=== PATIENT | female | born 1940 | race African-American/Black ===

== ENCOUNTER 2022-09-18 06:41 | Inpatient (IN) | payer MEDICARE ==
[~2022-09-18] VITALS: Ht 165.1 cm; Wt 90.7 kg
[2022-09-18 07:57] LABS: BASOPHILS % 0.5 % (0.0-2.0); HEMATOCRIT. 35.9 % (36.0-48.0); HEMOGLOBIN. 11.8 g/dL (12.0-16.0); LYMPHOCYTES % 23.4 % (20.0-50.0); MEAN CORPUSCULAR HEMOGLOBIN 27.4 pg (28.0-32.0); MEAN CORPUSCULAR VOLUME 83.4 fL (81.0-99.0); MEAN PLATELET VOLUME 7.9 fl (7.4-10.4); MONOCYTES % 6.6 % (2.0-8.0); NEUTROPHILS % 67.5 % (40.0-76.0); PLATELET 216 x1000/uL (130-400); RED CELL DISTRIBUTION WIDTH 15.1 % (11.6-14.6)
[2022-09-18 08:05] LABS: CHLORIDE 105 mEq/L (98-107)
[2022-09-18 08:06] LABS: PROTHROMBIN TIME 10.4 sec (9.6-11.0)
[2022-09-18] MEDS ORDERED: HYDRALAZINE 20MG/ML VIAL IV ONE (10:30)
[2022-09-18] MEDS ORDERED: DOCUSATE SODIUM 100MG CAPSULE PO PRN (12:00)
[2022-09-18] MEDS ORDERED: GUAIFENESIN 200MG/10ML SUGAR FREE UDC PO PRN (12:00)
[2022-09-18] MEDS ORDERED: ONDANSETRON HCL 4MG/2ML INJ IV PRN (12:00)
[2022-09-18] MEDS ORDERED: ACETAMINOPHEN 325MG TABLET PO PRN ×2 (12:00)
[2022-09-18] MEDS ORDERED: CLONIDINE 0.1MG TABLET PO PRN (12:00)
[2022-09-18] MEDS ORDERED: MAGNESIUM/ALUMINUM HYDROXIDE/SIMETHICONE 30ML UDC PO PRN (12:00)
[2022-09-18] MEDS ORDERED: NA PHOS,M-B/NA PHOS,DI-BA ENEMA 118ML PR PRN (12:00)
[2022-09-18] MEDS ORDERED: DEXTROSE 50% WATER 50ML SYRINGE IV PRN (12:00)
[2022-09-18] MEDS ORDERED: HYDRALAZINE 20MG/ML VIAL IV PRN (12:15)
[2022-09-18] MEDS ORDERED: GABAPENTIN 100MG CAPSULE PO SCH (13:00)
[2022-09-18] MEDS: INSULIN LISPRO 100 UNITS/ML SUBCUT SCH ×3 (13:20→20:45)
[2022-09-18] MEDS ORDERED: ACETAMINOPHEN 325MG TABLET PO SCH (13:30)
[2022-09-18] MEDS: AMLODIPINE 5MG TABLET PO SCH (13:45)
[2022-09-18] MEDS: BLOOD SUGAR DIAGNOSTIC STRIP TEST SCH ×3 (13:51→20:40)
[2022-09-18] MEDS ORDERED: HYDRALAZINE 20MG/ML VIAL IV SCH (14:00)
[2022-09-18 14:18] LABS: CLARITY URINE CLEAR (CLEAR); COLOR URINE YELLOW (YELLOW); KETONES URINE NEGATIVE (NEGATIVE); LEUKOCYTE ESTERASE URINE NEGATIVE (NEGATIVE); NITRITE URINE NEGATIVE (NEGATIVE); OCCULT BLOOD URINE NEGATIVE (NEGATIVE); PH URINE 5.5 (4.5-8.0); PROTEIN URINE NEGATIVE (NEGATIVE); UROBILINOGEN URINE 0.2 E.U./dL (0.2-1.0)
[2022-09-18 14:40] LABS: D-DIMER 0.46 mg/L FEU (<0.50); PROTHROMBIN TIME 10.3 sec (9.6-11.0)
[2022-09-18 15:21] LABS: T4 FREE 0.87 ng/dL (0.76-1.46)
[2022-09-18 15:30] VITALS: BP 142/51
[2022-09-18 15:53] VITALS: BP 142/51
[2022-09-18] MEDS: LOSARTAN POTASSIUM 100 MG TABLET PO SCH (16:58)
[2022-09-18] MEDS: RIVAROXABAN 15 MG TABLET PO SCH (16:58)
[2022-09-18 17:05] LABS: FOLIC ACID (FOLATE) SERUM >20 ng/mL ng/mL (>5.38); VITAMIN B12 SERUM 866 pg/mL (211-911)
[2022-09-18] MEDS: METOPROLOL SUCCINATE 50MG ER TABLET PO SCH (17:47)
[2022-09-18] MEDS ORDERED: DAPA10TA PO (18:56)
[2022-09-18 20:00] VITALS: BP 139/59
[2022-09-18] MEDS ORDERED: MEMA5TAB42 PO (20:30)
[2022-09-18] MEDS ORDERED: METO-396 PO (20:30)
[2022-09-18] MEDS ORDERED: AMLO10TA80 PO (20:30)
[2022-09-18] MEDS ORDERED: CYAN-50 PO (20:30)
[2022-09-18] MEDS ORDERED: XAR15 PO (20:30)
[2022-09-18] MEDS ORDERED: GABA-529 PO (20:30)
[2022-09-18] MEDS ORDERED: SIMV-43 PO (20:30)
[2022-09-18] MEDS ORDERED: DEXL60CA6 PO (20:30)
[2022-09-18] MEDS ORDERED: FOLI-43 PO (20:30)
[2022-09-18] MEDS ORDERED: LOSA100T32 PO (20:30)
[2022-09-18] MEDS ORDERED: SITA100T11 PO (20:30)
[2022-09-18] MEDS ORDERED: FINE10TA PO (20:30)
[2022-09-18] MEDS: FAMOTIDINE 20MG TABLET PO SCH (20:40)
[2022-09-18] MEDS: ATORVASTATIN CALCIUM 40MG TABLET PO SCH (20:40)
[2022-09-18] MEDS ORDERED: ATORVASTATIN CALCIUM 40MG TABLET PO SCH (21:00)
[2022-09-18] MEDS: IPRATROPIUM/ALBUTEROL 0.5-3(2.5)MG/3ML NEB HHN SCH (21:00)
[2022-09-18] MEDS: CLONIDINE 0.1MG TABLET PO SCH (22:00)
[2022-09-19 00:05] VITALS: BP 102/53
[2022-09-19] MEDS: IPRATROPIUM/ALBUTEROL 0.5-3(2.5)MG/3ML NEB HHN SCH ×6 (00:43→20:47)
[2022-09-19 04:00] VITALS: BP 126/41
[2022-09-19] MEDS: INSULIN LISPRO 100 UNITS/ML SUBCUT SCH ×4 (05:22→21:00)
[2022-09-19] MEDS: BLOOD SUGAR DIAGNOSTIC STRIP TEST SCH ×4 (05:22→21:00)
[2022-09-19] MEDS: CLONIDINE 0.1MG TABLET PO SCH ×3 (05:26→21:26)
[2022-09-19 06:27] LABS: BASOPHILS % 0.2 % (0.0-2.0); EOSINOPHILS % 1.6 % (0.0-5.0); HEMATOCRIT. 35.7 % (36.0-48.0); HEMOGLOBIN. 11.6 g/dL (12.0-16.0); MEAN CORPUSCULAR HEMOGLOBIN 27.3 pg (28.0-32.0); MEAN CORPUSCULAR VOLUME 84.1 fL (81.0-99.0); MONOCYTES % 7.7 % (2.0-8.0); NEUTROPHILS % 62.5 % (40.0-76.0); PLATELET 216 x1000/uL (130-400); RED BLOOD CELL COUNT 4.24 mill/uL (4.2-5.4); RED CELL DISTRIBUTION WIDTH 14.9 % (11.6-14.6)
[2022-09-19 08:00] VITALS: BP 116/48
[2022-09-19] MEDS: METOPROLOL SUCCINATE 50MG ER TABLET PO SCH (08:46)
[2022-09-19] MEDS: AMLODIPINE 5MG TABLET PO SCH (08:46)
[2022-09-19] MEDS: LOSARTAN POTASSIUM 100 MG TABLET PO SCH (08:46)
[2022-09-19 12:00] VITALS: BP 130/48
[2022-09-19 16:00] VITALS: BP 128/46
[2022-09-19] MEDS: RIVAROXABAN 15 MG TABLET PO SCH (16:44)
[2022-09-19 20:00] VITALS: BP 143/55
[2022-09-19] MEDS: ATORVASTATIN CALCIUM 40MG TABLET PO SCH (21:25)
[2022-09-19] MEDS: FAMOTIDINE 20MG TABLET PO SCH (21:26)
[2022-09-20] VITALS: BP 115/44
[2022-09-20] MEDS: IPRATROPIUM/ALBUTEROL 0.5-3(2.5)MG/3ML NEB HHN SCH ×6 (00:53→20:25)
[2022-09-20 04:00] VITALS: BP 105/82
[2022-09-20] MEDS: CLONIDINE 0.1MG TABLET PO SCH ×3 (05:06→21:15)
[2022-09-20] MEDS: BLOOD SUGAR DIAGNOSTIC STRIP TEST SCH ×4 (06:38→21:00)
[2022-09-20 08:00] VITALS: BP 144/60
[2022-09-20] MEDS ORDERED: IPRATROPIUM/ALBUTEROL 0.5-3(2.5)MG/3ML NEB HHN SCH (08:00)
[2022-09-20] MEDS: INSULIN LISPRO 100 UNITS/ML SUBCUT SCH ×4 (08:10→21:00)
[2022-09-20] MEDS: LOSARTAN POTASSIUM 100 MG TABLET PO SCH (08:35)
[2022-09-20] MEDS: AMLODIPINE 5MG TABLET PO SCH (08:36)
[2022-09-20] MEDS: METOPROLOL SUCCINATE 50MG ER TABLET PO SCH (08:37)
[2022-09-20] MEDS ORDERED: ALBU90AE INH (09:24)
[2022-09-20 12:00] VITALS: BP_SYST 134; BP_SYST 137; BP_SYST 142; BP_DIAS 47; BP_DIAS 57; BP_DIAS 59
[2022-09-20] MEDS ORDERED: ZOLPIDEM TARTRATE 5MG TABLET PO PRN (14:45)
[2022-09-20 16:00] VITALS: BP_SYST 130; BP_SYST 146; BP_DIAS 46; BP_DIAS 59; BP_DIAS 60
[2022-09-20] MEDS ORDERED: MAGNESIUM 2 G PREMIX 50 ML IV NR (16:00)
[2022-09-20 16:39] LABS: BASOPHILS % 0.2 % (0.0-2.0); EOSINOPHILS % 1.6 % (0.0-5.0); HEMATOCRIT. 34.5 % (36.0-48.0); HEMOGLOBIN. 11.4 g/dL (12.0-16.0); LYMPHOCYTES % 21.7 % (20.0-50.0); MEAN CORPUSCULAR HEMOGLOBIN 27.8 pg (28.0-32.0); MEAN CORPUSCULAR VOLUME 84.1 fL (81.0-99.0); MONOCYTES % 7.7 % (2.0-8.0); NEUTROPHILS % 68.8 % (40.0-76.0); PLATELET 208 x1000/uL (130-400); RED BLOOD CELL COUNT 4.11 mill/uL (4.2-5.4); RED CELL DISTRIBUTION WIDTH 14.8 % (11.6-14.6)
[2022-09-20 16:52] LABS: CHLORIDE 104 mEq/L (98-107)
[2022-09-20] MEDS: RIVAROXABAN 15 MG TABLET PO SCH (17:10)
[2022-09-20 20:00] VITALS: BP 130/40
[2022-09-20] MEDS: ATORVASTATIN CALCIUM 40MG TABLET PO SCH (21:14)
[2022-09-20] MEDS: FAMOTIDINE 20MG TABLET PO SCH (21:14)
[2022-09-21] VITALS: BP 125/51
[2022-09-21] MEDS: IPRATROPIUM/ALBUTEROL 0.5-3(2.5)MG/3ML NEB HHN SCH ×4 (00:02→12:40)
[2022-09-21 04:00] VITALS: BP 111/60
[2022-09-21] MEDS: CLONIDINE 0.1MG TABLET PO SCH (06:00)
[2022-09-21 07:30] LABS: BASOPHILS % 0.4 % (0.0-2.0); EOSINOPHILS % 1.8 % (0.0-5.0); HEMATOCRIT. 32.2 % (36.0-48.0); HEMOGLOBIN. 10.8 g/dL (12.0-16.0); LYMPHOCYTES % 17.3 % (20.0-50.0); MEAN CORPUSCULAR VOLUME 83.7 fL (81.0-99.0); MEAN PLATELET VOLUME 8.3 fl (7.4-10.4); MONOCYTES % 7.2 % (2.0-8.0); NEUTROPHILS % 73.3 % (40.0-76.0); PLATELET 208 x1000/uL (130-400); RED BLOOD CELL COUNT 3.84 mill/uL (4.2-5.4); RED CELL DISTRIBUTION WIDTH 15.1 % (11.6-14.6)
[2022-09-21] MEDS: BLOOD SUGAR DIAGNOSTIC STRIP TEST SCH (07:40)
[2022-09-21 08:00] VITALS: BP 110/37
[2022-09-21] MEDS: INSULIN LISPRO 100 UNITS/ML SUBCUT SCH (08:10)
[2022-09-21] MEDS: LOSARTAN POTASSIUM 100 MG TABLET PO SCH (08:57)
[2022-09-21] MEDS: METOPROLOL SUCCINATE 50MG ER TABLET PO SCH (08:57)
[2022-09-21] MEDS ORDERED: AMLODIPINE 10MG TABLET PO SCH (09:00)
[2022-09-21 13:29] VITALS: BP 110/50
== END 2022-09-21 15:10 | disposition home or self-care (01) | DRG 305 ==
LOC: ER 06:41 → 7WST 11:18
PROVIDERS: ADMIT Internal Medicine; ATTEND Internal Medicine
DX: I16.0 Hypertensive urgency (principal); E44.0 Moderate protein-calorie malnutrition; I50.32 Chronic diastolic (congestive) heart failure; E11.42 Type 2 diabetes mellitus with diabetic polyneuropathy; I48.91 Unspecified atrial fibrillation; D64.9 Anemia, unspecified; E78.5 Hyperlipidemia, unspecified; I11.0 Hypertensive heart disease with heart failure; I48.0 Paroxysmal atrial fibrillation; J45.909 Unspecified asthma, uncomplicated; Z79.01 Long term (current) use of anticoagulants; Z79.899 Other long term (current) drug therapy; Z86.73 Personal history of transient ischemic attack (TIA), and cerebral infarction without residual deficits; Z79.84 Long term (current) use of oral hypoglycemic drugs; Z68.33 Body mass index [BMI] 33.0-33.9, adult
CPT/HCPCS: 36415; 71045; 76770; 80048; 80053; 80061; 81003; 82607; 82746; 82962; 83036; 83605; 83735; 83880; 84100; 84145; 84439; 84443; 84484; 85025; 85379; 93005; 93306; 93880; 93970; 94640; 97162; 97166; 97530; 99285; J0360; J1815; J3475

== ENCOUNTER 2023-01-26 18:26 | Inpatient (IN) | payer MEDICARE ==
[~2023-01-26] VITALS: Ht 162.6 cm; Wt 94.0 kg
[~2023-01-26 18:26] MED LIST: ALBU90AE INH; AMLO10TA80 PO; CYAN-50 PO; DAPA10TA PO; DEXL60CA6 PO; FINE10TA PO; FOLI-43 PO; GABA-529 PO; LOSA100T33 PO; MEMA5TAB42 PO; METO-396 PO; SIMV-43 PO; SITA100T11 PO; XAR15 PO
[2023-01-26 20:13] LABS: CHLORIDE 104 mEq/L (98-107); INDEX HEMOLYSI 1 (1-3); INDEX ICTERIC 1 (1-4); INDEX LIPEMIC 1 (1-3); POTASSIUM 4.5 mEq/L (3.5-5.1); SODIUM 137 mEq/L (136-145)
[2023-01-26 20:24] LABS: ALANINE AMINOTRANSFERASE 27 IU/L (13-61); ALBUMIN 3.3 g/dL (3.4-5.0); ASPARTATE AMINOTRANSFERASE 17 IU/L (15-37); BILIRUBIN TOTAL 0.3 mg/dL (0.1-1.0); CARBON DIOXIDE 28 mEq/L (21-32); CREATININE 1.4 mg/dL (0.6-1.3); GLUCOSE 163 mg/dL (70-105); NT PRO B-TYPE NATRIURETIC PEP 254 pg/mL (5-125); PROTEIN TOTAL 7.7 g/dL (6.0-8.3); TROPONIN I HIGH SENSITIVITY 11 ng/L (<54); UREA NITROGEN BLOOD 14 mg/dL (7-21)
[2023-01-26 20:36] LABS: BASOPHILS % 0.5 % (0.0-2.0); EOSINOPHILS % 3.6 % (0.0-5.0); HEMATOCRIT. 39.1 % (36.0-48.0); HEMOGLOBIN. 12.6 g/dL (12.0-16.0); LYMPHOCYTES % 26.5 % (20.0-50.0); MEAN CORPUSCULAR HEMOGLOBIN 27.4 pg (28.0-32.0); MEAN CORPUSCULAR HGB CONC 32.2 g/dL (31.0-37.0); MEAN PLATELET VOLUME 8.1 fl (7.4-10.4); MONOCYTES % 5.8 % (2.0-8.0); NEUTROPHILS % 63.6 % (40.0-76.0); PLATELET 195 x1000/uL (130-400); RED CELL DISTRIBUTION WIDTH 16.6 % (11.6-14.6); WHITE BLOOD COUNT 7.6 x1000/uL (4.5-11.0)
[2023-01-26 20:45] LABS: DIFFERENTIAL COMMENT 1
[2023-01-26] MEDS ORDERED: ASPIRIN 81MG TABLET PO ONE (21:45)
[2023-01-26 22:45] VITALS: BP 162/70; PULSE 66; RESP 18; TEMP 97.9
[2023-01-26 23:28] VITALS: BP 162/70; PULSE 66; RESP 18; TEMP 97.9
[2023-01-26] MEDS ORDERED: ACETAMINOPHEN 325MG TABLET PO PRN ×2 (23:45)
[2023-01-26] MEDS ORDERED: DOCUSATE SODIUM 100MG CAPSULE PO PRN (23:45)
[2023-01-26] MEDS ORDERED: MAGNESIUM/ALUMINUM HYDROXIDE/SIMETHICONE 30ML UDC PO PRN (23:45)
[2023-01-26] MEDS ORDERED: GUAIFENESIN 200MG/10ML SUGAR FREE UDC PO PRN (23:45)
[2023-01-26] MEDS ORDERED: IPRATROPIUM/ALBUTEROL 0.5-3(2.5)MG/3ML NEB HHN PRN (23:45)
[2023-01-26] MEDS ORDERED: CLONIDINE 0.1MG TABLET PO PRN (23:45)
[2023-01-26] MEDS ORDERED: DIPHENHYDRAMINE 50MG/ML VIAL IV PRN (23:45)
[2023-01-27] MEDS ORDERED: DEXTROSE 50% WATER 50ML SYRINGE IV PRN (00:15)
[2023-01-27] MEDS ORDERED: SODIUM CHLORIDE 0.45% 1,000 ML IV SCH (01:00)
[2023-01-27] MEDS ORDERED: ENOXAPARIN 100MG/ML SYR SUBCUT NR (02:00)
[2023-01-27 05:16] LABS: CLARITY URINE CLEAR (CLEAR); COLOR URINE YELLOW (YELLOW); GLUCOSE URINE 3+ (NEGATIVE); KETONES URINE NEGATIVE (NEGATIVE); LEUKOCYTE ESTERASE URINE NEGATIVE (NEGATIVE); NITRITE URINE NEGATIVE (NEGATIVE); OCCULT BLOOD URINE NEGATIVE (NEGATIVE); PH URINE 6.5 (4.5-8.0); PROTEIN URINE NEGATIVE (NEGATIVE); SPECIFIC GRAVITY URINE 1.015 (1.005-1.030); UROBILINOGEN URINE 0.2 E.U./dL (0.2-1.0)
[2023-01-27 05:19] LABS: RBC URINE NONE SEEN /hpf (0-2); WBC URINE 0-2 /hpf (0-2); YEAST URINE NONE SEEN
[2023-01-27 05:29] LABS: *AMPHETAMINES SCREEN URINE NEGATIVE (NEGATIVE); *BARBITURATES SCREEN URINE NEGATIVE (NEGATIVE); *BENZODIAZEPINES SCREEN URINE NEGATIVE (NEGATIVE); *COCAINE SCREEN URINE NEGATIVE (NEGATIVE); CANNABINOID URINE SCREEN NEGATIVE (NEGATIVE); ECSTASY MDMA SCREEN URINE NEGATIVE (NEGATIVE); METHADONE URINE SCREEN NEGATIVE (NEGATIVE); OPIATES URINE SCREEN NEGATIVE (NEGATIVE); PHENCYCLIDINE URINE SCREEN NEGATIVE (NEGATIVE)
[2023-01-27] MEDS ORDERED: ENOXAPARIN 100MG/ML SYR SUBCUT SCH (06:00)
[2023-01-27] MEDS: BLOOD SUGAR DIAGNOSTIC STRIP TEST SCH ×4 (06:13→21:22)
[2023-01-27 06:15] LABS: SQUAMOUS EPITHELIAL CELL URINE FEW /lpf (RARE/1+)
[2023-01-27 06:16] LABS: BACTERIA URINE 1+
[2023-01-27] MEDS: INSULIN LISPRO 100 UNITS/ML SUBCUT SCH ×4 (06:22→21:00)
[2023-01-27 07:13] LABS: BASOPHILS % 0.3 % (0.0-2.0); EOSINOPHILS % 3.7 % (0.0-5.0); HEMATOCRIT. 37.3 % (36.0-48.0); HEMOGLOBIN. 12.2 g/dL (12.0-16.0); LYMPHOCYTES % 29.1 % (20.0-50.0); MEAN CORPUSCULAR HEMOGLOBIN 27.6 pg (28.0-32.0); MEAN CORPUSCULAR HGB CONC 32.8 g/dL (31.0-37.0); MEAN CORPUSCULAR VOLUME 84.2 fL (81.0-99.0); MEAN PLATELET VOLUME 8.1 fl (7.4-10.4); MONOCYTES % 6.5 % (2.0-8.0); NEUTROPHILS % 60.4 % (40.0-76.0); PLATELET 196 x1000/uL (130-400); RED BLOOD CELL COUNT 4.43 mill/uL (4.2-5.4); RED CELL DISTRIBUTION WIDTH 16.3 % (11.6-14.6)
[2023-01-27 07:24] LABS: PROTHROMBIN TIME 10.9 sec (9.6-11.0)
[2023-01-27 08:00] VITALS: BP 155/66; PULSE 75; RESP 16; TEMP 98
[2023-01-27 08:05] LABS: CHLORIDE 108 mEq/L (98-107); INDEX HEMOLYSI 1 (1-3); INDEX ICTERIC 1 (1-4); INDEX LIPEMIC 1 (1-3); POTASSIUM 3.9 mEq/L (3.5-5.1); SODIUM 136 mEq/L (136-145)
[2023-01-27 08:22] LABS: ALANINE AMINOTRANSFERASE 20 IU/L (13-61); ALBUMIN 2.9 g/dL (3.4-5.0); ASPARTATE AMINOTRANSFERASE 18 IU/L (15-37); BILIRUBIN TOTAL 0.3 mg/dL (0.1-1.0); CALCIUM 8.5 mg/dL (8.5-10.1); CARBON DIOXIDE 28 mEq/L (21-32); CHOLESTEROL 202 mg/dL (<200); CREATINE KINASE 66 IU/L (26-192); CREATINE KINASE MB FRACTION < 1.0 ng/mL (0.5-3.6); CREATININE 1.3 mg/dL (0.6-1.3); GLUCOSE 152 mg/dL (70-105); HDL CHOLESTEROL 54 mg/dL (40-59); LDL CHOLESTEROL 136 mg/dL (5-100); PROTEIN TOTAL 6.7 g/dL (6.0-8.3); T4 FREE 0.88 ng/dL (0.76-1.46); TRIGLYCERIDE 170 mg/dL (0-150); TROPONIN I HIGH SENSITIVITY 12 ng/L (<54); UREA NITROGEN BLOOD 12 mg/dL (7-21)
[2023-01-27] MEDS: FOLIC ACID 1MG TABLET PO SCH (09:57)
[2023-01-27] MEDS: CYANOCOBALAMIN 1000MCG TABLET PO SCH (09:58)
[2023-01-27] MEDS: LOSARTAN POTASSIUM 100 MG TABLET PO SCH (09:58)
[2023-01-27] MEDS: METOPROLOL TARTRATE 25MG TABLET PO SCH ×2 (09:59→17:53)
[2023-01-27 11:55] VITALS: BP 147/58; PULSE 69; RESP 16; TEMP 97.8
[2023-01-27] MEDS: AMLODIPINE 10MG TABLET PO SCH (14:34)
[2023-01-27 15:50] LABS: BG BASE EXCESS -0.9 mmol/L (-2.0-2.0); BG CARBOXYHEMOGLOBIN 0.3 % (0.5-1.5); BG DEOXYHEMOGLOBIN 5.2 % (0.0-5.0); BG FRACTION INSPIRED OXYGEN 21; BG HCO3 ACT 23.6 mmol/L (22.0-26.0); BG METHEMOGLOBIN 0.4 % (0.0-1.5); BG OXYGEN SATURATION 94.8 % (92.0-98.5); BG OXYHEMOGLOBIN 94.1 % (94.0-97.0); BG PCO2 38.4 mmHg (35.0-45.0); BG PH 7.406 (7.350-7.450); BG PO2 76.7 mmHg (75.0-100.0); BG SAMPLE SITE LEFT BRACHIAL; BG TOTAL HEMOGLOBIN 13.1 g/dL (12.0-18.0); BG TOTAL RESPIRATORY RATE 20 b/min; BG VENT MODE ROOM AIR
[2023-01-27 16:00] VITALS: BP 134/65; PULSE 64; RESP 14; TEMP 98.6
[2023-01-27] MEDS ORDERED: RIVAROXABAN 15 MG TABLET PO SCH (17:00)
[2023-01-27 18:31] LABS: INDEX HEMOLYSI 1 (1-3)
[2023-01-27 18:41] LABS: CREATINE KINASE 66 IU/L (26-192); CREATINE KINASE MB FRACTION < 1.0 ng/mL (0.5-3.6); TROPONIN I HIGH SENSITIVITY 12 ng/L (<54)
[2023-01-27 18:49] LABS: PHOSPHORUS 4.1 mg/dL (2.5-4.9)
[2023-01-27 20:00] VITALS: BP 146/66; PULSE 67; RESP 18; TEMP 97.9
[2023-01-27] MEDS ORDERED: FAMOTIDINE 20MG TABLET PO SCH (21:00)
[2023-01-27 23:35] VITALS: RESP 18
[2023-01-28] VITALS: BP 130/68; PULSE 70; RESP 19; TEMP 97.7
[2023-01-28 04:00] VITALS: BP 151/73; PULSE 73; RESP 19; TEMP 98.2
[2023-01-28] MEDS ORDERED: ENOXAPARIN 100MG/ML SYR SUBCUT SCH (06:00)
[2023-01-28] MEDS: BLOOD SUGAR DIAGNOSTIC STRIP TEST SCH ×2 (06:40→11:40)
[2023-01-28] MEDS: INSULIN LISPRO 100 UNITS/ML SUBCUT SCH ×2 (06:40→12:10)
[2023-01-28 06:45] LABS: HEMATOCRIT 38.9 % (36.0-48.0); HEMOGLOBIN 12.8 g/dL (12.0-16.0); MEAN CORPUSCULAR HEMOGLOBIN 27.5 pg (28.0-32.0); MEAN CORPUSCULAR HGB CONC 32.9 g/dL (31.0-37.0); MEAN CORPUSCULAR VOLUME 83.8 fL (81.0-99.0); PLATELET 204 x1000/uL (130-400); RED BLOOD CELL COUNT 4.65 mill/uL (4.2-5.4); RED CELL DISTRIBUTION WIDTH 16.3 % (11.6-14.6); WHITE BLOOD COUNT 6.6 x1000/uL (4.5-11.0)
[2023-01-28 07:53] LABS: POTASSIUM 3.9 mEq/L (3.5-5.1)
[2023-01-28 08:03] VITALS: BP 104/74; PULSE 62; RESP 17; TEMP 98.4
[2023-01-28 08:05] LABS: CALCIUM 8.9 mg/dL (8.5-10.1); CREATININE 1.4 mg/dL (0.6-1.3); PHOSPHORUS 3.9 mg/dL (2.5-4.9)
[2023-01-28] MEDS: CYANOCOBALAMIN 1000MCG TABLET PO SCH (09:05)
[2023-01-28] MEDS: METOPROLOL TARTRATE 25MG TABLET PO SCH ×2 (09:06→16:07)
[2023-01-28] MEDS: LOSARTAN POTASSIUM 100 MG TABLET PO SCH (09:07)
[2023-01-28] MEDS: FOLIC ACID 1MG TABLET PO SCH (09:07)
[2023-01-28] MEDS: AMLODIPINE 10MG TABLET PO SCH (09:07)
[2023-01-28 12:00] VITALS: BP 156/74; PULSE 65; RESP 18; TEMP 98.6
[2023-01-28] MEDS ORDERED: LIP40 PO (15:49)
[2023-01-28 16:00] VITALS: BP 128/67; PULSE 77; RESP 17; TEMP 97.6
[2023-01-28 16:50] VITALS: BP 128/67; PULSE 77; TEMP 97.6; O2SAT 98
[2023-01-28] MEDS ORDERED: ATORVASTATIN CALCIUM 40MG TABLET PO SCH (21:00)
== END 2023-01-28 19:10 | disposition home or self-care (01) | DRG 304 ==
LOC: ER 18:26 → 7EST 22:41
PROVIDERS: ADMIT Internal Medicine; ATTEND Internal Medicine
DX: I16.1 Hypertensive emergency (principal); J96.90 Respiratory failure, unspecified, unspecified whether with hypoxia or hypercapnia; E44.0 Moderate protein-calorie malnutrition; I48.19 Other persistent atrial fibrillation; N17.9 Acute kidney failure, unspecified; I69.351 Hemiplegia and hemiparesis following cerebral infarction affecting right dominant side; Z20.822 Contact with and (suspected) exposure to COVID-19; G47.33 Obstructive sleep apnea (adult) (pediatric); I13.10 Hypertensive heart and chronic kidney disease without heart failure, with stage 1 through stage 4 chronic kidney disease, or unspecified chronic kidney disease; E11.22 Type 2 diabetes mellitus with diabetic chronic kidney disease; N18.9 Chronic kidney disease, unspecified; E78.5 Hyperlipidemia, unspecified; J44.9 Chronic obstructive pulmonary disease, unspecified; N28.1 Cyst of kidney, acquired; E11.9 Type 2 diabetes mellitus without complications; Z91.199 Patient's noncompliance with other medical treatment and regimen due to unspecified reason; Z79.899 Other long term (current) drug therapy; Z79.01 Long term (current) use of anticoagulants; Z68.35 Body mass index [BMI] 35.0-35.9, adult
CPT/HCPCS: 36415; 36600; 71045; 80048; 80053; 80061; 80305; 81003; 82375; 82550; 82553; 82805; 82962; 83036; 83735; 83880; 84100; 84439; 84443; 84484; 85025; 85027; 85379; 87426; 93005; 93306; 93880; 93970; 99291; C9803; J1650; J1815